=== PATIENT | female | born 2000 | race Hispanic/Latino ===

== ENCOUNTER 2023-01-28 17:57 | Emergency (ER) | payer OTHER, SELFPAY ==
--- OUTSIDE RECORDS SUMMARY | 2023-01-28 18:01 | XMS REPORT | Continuity of Care Document ---
:2000 Author Organization [facility] t Address [address] [place] [id number] Care Team Providers Name Role Phone ALENA LIZAMA Primary Care Physician Unavailable ALENA LIZAMA Attending Clinician Unavailable Nurse, [facility] Attending Clinician Unavailable Alena Lizama MD Attending Clinician Pob, [facility] Lab Main Attending Clinician Unavailable Giovanni Vasquez MD Attending Clinician Doctor Unassigned, [employer] Attending Clinician Unavailable MAKI MAHER Attending Clinician Unavailable Maki Maher PA-C Attending Clinician Mayo Melgoza DO Attending Clinician Ultrasound, [facility] Attending Clinician Unavailable Darrell Hatch MD Attending Clinician 2, [facility] Attending Clinician Unavailable LAUREN MELGOZA Attending Clinician Unavailable LAUREN MELGOZA Attending Clinician Unavailable 2, [facility] Usg Room Attending Clinician Unavailable Lauren Melgoza MD Attending Clinician 5, [facility] Room Attending Clinician Unavailable Yvette Cortés MD Attending Clinician IDALIA QUEVEDO Attending Clinician Unavailable OFELIA HAWK Attending Clinician Unavailable Idalia Dickens Attending Clinician Maddison Mccann MD Attending Clinician [phone] ALENA LIZAMA Admitting Clinician Unavailable Dl HARVEY Alena Patel Admitting Clinician Payers Payer Name Policy Type Policy Number Effective Date Expiration Date Raysa nash [facility] [id number] 2020 00:00:00 MEDICAID [facility] [id number] 2020 00:00:00 Problems Condition Condition Condition Status Onset Resolution Last Treating Co mments Source Name Details Category Date Date Treatment Clinician Date Well woman Well woman Disease Active U nivers exam with exam with 1-10 ity of routine routine 00:00: [place] gynecologi gynecologi 00 Me dical yandy exam yandy exam Branch Depo-Prove Depo-Prove Disease Active U nivers ra ra 1-10 ity of contracept contracept 00:00: Timo prieto melani status melani status 00 Me dical Branch Obesity Obesity Disease Active Univers (BMI (BMI 6-03 ity of 30-39.9) 30-39.9) 00:00: [place] [address] Medical Branch Allergies, Adverse Reactions, Alerts Allergy Allergy Status Severity Reaction(s) Onset Inactive Treating Comm ents Source Name Type Date Date Clinician NO KNOWN Drug Active Univers ALLERGIE Class ity of S [place] [facility] [place] Social History Social Habit Start Date Stop Date Quantity Comments Source History SDOH University o f Alcohol Std [place] [facility] Drinks Branch History SDIN University o f Alcohol Binge [place] [facility] Exposure to Not sure University of SARS-CoV-2 [place] [facility] (event) Branch History [facility] University o f Alcohol Comment [place] [facility] Alcohol intake 2021-12-05 2021-12-05 Lifetime University of 00:00:00 00:00:00 non-drinker [place] [facility] (finding) Branch Tobacco use and 2020-04-26 2020-04-26 Never used Universit y of exposure 00:00:00 00:00:00 [place] [facility] History SDOH 2020-04-26 2020-04-26 1 University o f Alcohol Frequency 00:00:00 00:00:00 [facility] edical [place] Sex Assigned At 2000 2000 Universit y of 00:00:00 00:00:00 [facility] Smoking Status Start Date Stop Date Source Never smoker [facility] [place] [facility] Medications Ordered Filled Start Stop Current Ordering Indication Dosage Frequency Signature Comments Components Source Medication Medication Date Date Medication? Clinician (SIG) Name Name medroxyPROG 2021- No [id number] 150mg Univers ESTERone 03-06 ity of (DEPO-PROVE 16:15: 15:10 [place] RA) syringe 00 :00 Medical 150 mg Branch medroxyPROG 2021- No [id number] 150mg 150 mg, Univers ESTERone 03-06 Intramuscu ity of (DEPO-PROVE 16:15: 15:10 lar, ONCE, [place] RA) syringe 00 :00 1 dose, On Me dical 150 mg [facility] 03/06/22 at 1115, Routine medroxyPROG 2021- No [id number] 150mg Univers ESTERone 12-05 ity of (DEPO-PROVE 21:00: 19:50 [place] RA) syringe 00 :00 Medical 150 mg Branch medroxyPROG 2021- No [id number] 150mg 150 mg, Univers ESTERone 12-05 Intramuscu ity of (DEPO-PROVE 21:00: 19:50 lar, ONCE, [place] RA) syringe 00 :00 1 dose, On Me dical 150 mg [facility] 12/05/21 at 1500, Routine medroxyPROG 2021- No [id number] 150mg Univers ESTERone 12-05 ity of (DEPO-PROVE 21:00: 19:50 [place] RA) syringe 00 :00 Medical 150 mg Branch medroxyPROG 2021- No [id number] 150mg 150 mg, Univers ESTERone 12-05 Intramuscu ity of (DEPO-PROVE 21:00: 19:50 lar, ONCE, [place] RA) syringe 00 :00 1 dose, On Me dical 150 mg [facility] 12/05/21 at 1500, Routine No known No Univers medications 12-05 ity of 14:46: [place] 09 [facility] Immunizations Ordered Filled Immunization Date Status Comments Sour e Immunization Name Name HPV9 2021-12-05 Completed University of 00:00:00 [facility] HPV9 2021-12-05 Completed University 00:00:00 [facility] HPV9 2021-12-05 Completed University of 00:00:00 [facility] 2021-12-05 Completed University of 00:00:00 [place] [facility] TDAP 2020-10-06 Completed University of 00:00:00 [place] [facility] TDAP 2020-10-06 Completed University of 00:00:00 [facility] TDAP 2020-10-06 Completed University of 00:00:00 [place] [facility] TDAP 2020-10-06 Completed University of 00:00:00 [facility] Influenza Virus 2020-09-09 Completed Universit y of Vaccine Quad .5 mL 00:00:00 [place] [facility] IM 6+ MO Branch Influenza Virus 2020-09-09 Completed Universit y of Vaccine Quad .5 mL 00:00:00 [place] [facility] IM 6+ MO Branch Influenza Virus 2020-09-09 Completed Universit y of Vaccine Quad .5 mL 00:00:00 [place] [facility] IM 6+ MO Branch Influenza Virus 2020-09-09 Completed Universit y of Vaccine Quad .5 mL 00:00:00 [place] [facility] IM 6+ MO Branch Vital Signs Vital Name Observation Time Observation Value Comments Source Systolic blood 2022-03-06 15:08:00 109 mm[Hg] Univer sity of pressure [facility] Diastolic blood 2022-03-06 15:08:00 74 mm[Hg] Unive rsity of pressure [facility] Heart rate 2022-03-06 15:08:00 83 /min Universi ty [facility] Body temperature 2022-03-06 15:08:00 36.89 Joan [facility] Body height 2022-03-06 15:08:00 157.5 cm Universi ty [facility] Body weight 2022-03-06 15:08:00 85.458 kg [facility] BMI 2022-03-06 15:08:00 34.46 kg/m2 [facility] ty [facility] Systolic blood 2021-12-05 19:42:00 121 mm[Hg] Univer sity of pressure [facility] Diastolic blood 2021-12-05 19:42:00 81 mm[Hg] Unive rsity of pressure [facility] Heart rate 2021-12-05 19:42:00 92 /min Universi ty [facility] Respiratory rate 2021-12-05 19:42:00 18 /min [facility] height 2021-12-05 19:42:00 157.5 cm [facility] Body weight 2021-12-05 19:42:00 85.73 kg [facility] BMI 2021-12-05 19:42:00 34.57 kg/m2 [facility] Procedures Procedure Date / Time Performed Performing Clinician Souromer e GARDASIL 9 (HPV 9V) 2021-12-05 20:31:20 Alena Lizama [facility] Encounters Start End Encounter Admission Attending Care Care Encounter Source Date/Time Date/Time Type Type Clinicians Facility Department ID 2021-09-24 Outpatient P [facility] ISAAC [id number] Univers [facility] 2022-12-06 2022-12-06 Outpatient R ALENA LIZAMA [facility] [id number] Univers 10:30:00 [facility] 2022-06-21 2022-06-21 Outpatient R ALENA LIZAMA [facility] [id number] Univers 15:00:00 [facility] 2022-05-30 2022-05-30 Outpatient R DL ALENA [facility] [id number] Univers 10:30:00 [facility] 2022-03-06 2022-03-06 Outpatient R ALENA LIZAMA [facility] [id number] Univers 10:00:00 [facility]:08:[facility] 2022-03-06 2022-03-06 Nurse Nurse, [facility] 1.2.840.114 [id number] Univers 10:00:00 10:08:09 Visit Al[place] Liz[place] [id number] [facility] 4.2.7.2.686 Berenice ALBA [phone] Or dical [address] BUILDING 2022-01-26 2022-01-26 Outpatient R [facility] [id number] Univers 10:00:00 [facility] 2021-12-06 2021-12-06 Logistics Tech Braeden Perez Lab Main [facility] [id number] [id number] Univers 14:00:00 14:15:00 Visit Giovanni Vasquez SELENA [id number] ity of Alena Lizama 4.2.7.2.686 [place] PROFESSIO [phone] Or dical NAL 353 [facility] 2021-12-06 2021-12-06 Outpatient R ALENA LIZAMA [facility] [id number] Univers 14:00:00 14:00:00 ity of [facility] 2021-12-05 2021-12-05 Outpatient R ALENA LIZAMA [facility] [id number] Univers 13:30:00 14:42:26 ity of [facility] 2021-12-05 2021-12-05 Office Dl [facility] [id number] Univers 13:30:00 14:42:26 Visit Jorge SELENA [id number] i ty [facility] [id number] [phone] Or dical NAL 134 [facility] 2021-12-05 2021-12-05 Outpatient R ALENA LIZAMA [facility] [id number] Univers 13:30:00 14:42:26 ity of [facility] 2021-09-09 2021-09-09 Nurse Nurse, [facility] [id number] Univers 15:26:14 15:41:14 Visit Alena Lizamaton 350.1.13.10 ity of [place] 4[place]2.[place] Profess[place] [phone] Or dical nal 134 [facility] 2021-09-09 2021-09-09 Outpatient R [facility] [id number] Univers 15:30:00 15:30:00 ity of [facility] 2021-09-09 2021-09-09 Orders Doctor HERNANDEZ 1.2.840.114 [id number] Univers 00:00:00 00:00:00 Only Unassigned, WAQAS 350.1.13.10 ity of [employer] [facility] 4.2.7.2.686 Emir as [phone] [address] 2021-07-21 2021-07-21 Outpatient R GUNNAR [facility] [id number] Univers 10:30:00 10:30:00 MAKI marcelo [facility] 2021-06-09 2021-06-09 Office Gunnar [facility] [id number] Univers 14:33:04 15:53:03 Visit Maki Marcton 350.1.13.10 i ty of [place] [phone] Or dical nal 134 [facility] 2021-06-09 2021-06-09 Outpatient R GUNNAR [facility] [id number] Univers 14:45:00 14:45:00 MAKI marcelo [facility] 2021-06-09 2021-06-09 Orders Doctor DAVID 1.2.840.114 [id number] Univers 00:00:00 00:00:00 Only Unassigned, ACWORTH 350.1.13.10 [facility] 4.2.7.2.686 Emir as [phone] [address] 2021-05-09 2021-05-09 Outpatient R ALENA LIZAMA [facility] [id number] Univers 15:15:00 15:15:00 ity of [facility] 2021-02-15 2021-02-15 [facility] 1.2.840.114 [id number] Univers 00:00:00 00:00:00 Outreach [facility] 350.1.13.10 i ty of [facility] 4.2.7.2.[place] [phone] Or dical [address] [place] [address] 2021-02-14 2021-02-14 Outpatient R ALENA LIZAMA [facility] [id number] Univers 15:00:00 15:00:00 ity of [facility] 2021-02-03 2021-02-03 Office Alena Lizama [facility] [id number] Univers 15:34:01 16:38:35 Visit Jorge Mohan 350.1.13.10 i ty of [place] 4[place]2.7.2.[place] [phone] Or dical [address] 2021-02-03 2021-02-03 Outpatient R ALENA LIZAMA [facility] [id number] Univers 15:30:00 15:30:00 ity [facility] 2021-02-03 2021-02-03 Orders Doctor DAVID 1.2.840.114 [id number] Univers 00:00:00 00:00:00 Only Unassigned, WAQAS 350.1.13.10 [facility]y [facility] 4.2.7.2.686 Emir as [phone] [address] 2021-01-04 2021-01-04 [facility] [id number] Univers 10:15:00 10:15:00 MAKI ity [facility] 2021-01-03 2021-01-03 Orders Doctor DAVID 1.2.840.114 [id number] Univers 00:00:00 00:00:00 Only Unassigned, WAQAS 350.1.13.10 ity [facility] 4.2.7.2.686 Emir as [phone] [address] 2020-12-23 2020-12-23 Nurse Nurse, [facility] 1.2.840.114 [id number] Univers 08:53:37 09:13:01 Visit DlEulamichelle Mohan 350.1.13.10 ity [facility] 4.2.7.2.[place] [phone] Or dical [address] 2020-12-23 2020-12-23 Outpatient R [facility] [id number] Univers 09:00:00 09:00:00 ity of [facility] 2020-12-23 2020-12-23 Telephone Alena Lizama [facility] 1.2.840.114 [id number] Univers 00:00:00 00:00:00 Jorge Mohan 350.1.13.10 i ty of [place] [phone] Or dical [address] 2020-12-15 2020-12-18 Hospital Dl Alena [facility] 1.2.840.114 [id number] Univers 11:51:00 13:45:00 Encounter Cam Bethel 350.1.13.10 ity of [place] 4.2.[place].2.686 [place] [phone] [address] 2020-12-07 2020-12-07 Routine Alena Lizama [facility] 1.2.644.912 [id number] Univers 16:15:55 16:47:56 Cam Bethel 350.1.13.10 ity of Visit [place] 4.2.7.2.[place] [phone] Or dical nal [address] [place] [address] 2020-12-07 2020-12-07 Outpatient R DL ALENA [facility] [id number] Univers 16:15:00 16:15:00 ity of [facility] 2020-11-29 2020-11-29 [facility] [id number] Univers 13:24:32 17:09:01 Cam Bethel 350.1.13.10 ity of [place] 4.2.7.2.[place] [phone] Or dicnj nal [address] [place] [address] 2020-11-29 2020-11-29 Logistics Tech Ultrasound, [facility] 1.2 .840.114 [id number] Univers 09:24:33 09:54:33 Visit Darrell Hatch REGULATORY AUDITOR 350.1.13.10 ity of REGIONAL 4.2.7.2.686 Emir as MATERNAL [phone] Med ical & CHILD [address] [place] [address] 2020-11-29 2020-11-29 Outpatient P [facility] [id number] Univers 09:30:00 09:30:00 ity of [facility] 2020-11-15 2020-11-15 Routine Eula Lizamaen [facility] 1.2.013.132 [id number] Univers 16:07:43 17:05:58 Cam Bethel 350.1.13.10 ity of [place] 4.2.7.2.[place] [phone] Or dical nal [address] [place] [address] 2020-11-15 2020-11-15 Logistics Tech 2, Adc Lab [facility] 1.2.840.114 [id number] Univers 14:51:42 15:06:42 Visit Alena Lizama Jorge Mohan 350.1.13.10 ity of [place] 4.2.7.2.[place] [phone] Or dicbo[facility] 353 [facility] 2020-11-15 2020-11-15 Outpatient R [facility] [id number] Univers 15:00:00 15:00:00 ity of [facility] 2020-11-15 2020-11-15 Orders Doctor DAVID 1.2.840.114 [id number] Univers 00:00:00 00:00:00 Only Unassigned, WAQAS 350.1.13.10 ity of [employer] [facility] 4.2.7.2.686 Emir as [phone] [address] 2020-11-12 2020-11-12 Outpatient R LAUREN MELGOZA [facility] [id number] Univers 13:30:00 13:30:00 LAUREN MELGOZA ity of [facility] 2020-11-01 2020-11-01 Routine Dl [facility] [id number] Univers 15:29:29 16:21:35 Jorge Mohan 350.1.13.10 ity of [place] 4.[place].2.[place] [phone] [facility] 134 [facility] 2020-11-01 2020-11-01 Outpatient R DL [facility] [id number] Univers 15:30:00 15:30:00 ity of [facility] 2020-10-28 2020-10-28 Routine Dl [facility] 1.2.440.704 [id number] Univers 11:10:22 11:44:52 Jorge Mohan 350.1.13.10 ity of [place] 4.2.7.2.[place] [phone] Or [facility] 134 [facility] 2020-10-28 2020-10-28 Outpatient R DL [facility] [id number] Univers 11:15:00 11:15:00 ity of [facility] 2020-10-28 2020-10-28 Telephone Dl [facility] 1..840.114 [id number] Univers 00:00:00 00:00:00 Jorge Mohan 350.1.13.10 i ty of [place] 4.2.7.2.686 [place] [phone] [address] 2020-10-26 2020-10-26 Logistics Tech 2, [facility] Usg Room UNIVERSIT 1 .2.840.114 [id number] Univers 13:04:16 13:34:16 Visit Lauren Melgoza [facility] 350.1.13.10 ity of CLINICS 4.2.7.2.[place] [phone] [address] 2020-10-26 2020-10-26 Outpatient P [facility] [id number] Univers 13:00:00 13:00:00 ity [facility] 2020-10-25 2020-10-25 Outpatient R ALENA LIZAMA [facility] [id number] Univers 15:45:00 15:45:00 ity [facility] 2020-10-06 2020-10-06 [facility] 1..554.839 [id number] Univers 15:39:12 16:08:34 Mkai Mohan 350.1.13.10 ity of Visit [place] 4.2.7.2.[place] [phone] [address] 2020-10-06 2020-10-06 Outpatient R GUNNAR [facility] [id number] Univers 15:30:00 15:30:00 MAKI ity [facility] 2020-09-10 2020-09-10 Logistics Tech 5, [facility] Us Room UNIVERSIT 1 .2.840.114 [id number] Univers 10:29:35 11:29:35 Visit Yvette Cortés [facility] 350.1.13.10 ity of CLINICS 4.2.7.2.[place] [phone] [address] 2020-09-10 2020-09-10 Outpatient P [facility] [id number] Univers 10:30:00 10:30:00 ity [facility] 2020-09-09 2020-09-09 Routine Alena Lizama [facility] [id number] Univers 16:09:46 16:49:54 Cam Bethel 350.1.13.10 ity of [place] 4.2.7.2.[place] [phone] Or dical nal [address] [facility] 2020-09-09 2020-09-09 Outpatient R ALENA LIZAMA [facility] [id number] Univers 16:15:00 16:15:00 ity of [facility] 2020-08-13 2020-08-13 [facility] [id number] Univers 16:30:00 16:30:00 [facility] 2020-08-12 2020-08-12 [facility] [id number] Univers 15:39:18 16:03:16 Makicorey Mohan 350.1.13.10 ity of [place] 4.2.7.2.[place] [phone] Or dical [address] 2020-08-12 2020-08-12 Out[facility] [id number] Univers 15:30:00 15:30:00 [facility] 2020-07-30 2020-07-30 Logistics Tech 5, [facility] Room UNIVERSIT 1 .2.840.114 [id number] Univers 12:56:18 14:47:10 Visit Lauren Melgoza [facility] 350.1.13.10 ity of CL[place] 4.2.7.2.[place] [phone] [address] 2020-07-30 2020-07-30 Outpatient P [facility] [id number] Univers 13:00:00 13:00:00 ity of [facility] 2020-07-16 2020-07-16 Routine Alena Lizama [facility] [id number] [id number] Univers 16:08:01 17:18:50 Cam Bethel 350.1.13.10 ity of Visit [place] 4.2.7.2.[place] [phone] Or dical nal [address] [place] [address] 2020-07-16 2020-07-16 Outpatient R DL ALENA [facility] [id number] Univers 16:15:00 16:15:00 ity of [facility] 2020-07-16 2020-07-16 Logistics Tech 2, Adc Lab [facility] 1.2.840.114 [id number] Univers 15:20:09 15:35:09 Visit Alena Lizama Jorge Mohan 350.1.13.10 ity of [place] 4.2.7.2.686 [place] [phone] Or dical nal [address] [facility] 2020-06-11 2020-07-16 Routine Dl [facility] [id number] Univers 09:23:51 15:16:34 Jorge Mohan 350.1.13.10 ity of Visit [place] 4.2.7.2.[place] [phone] Or dical community health [address] [facility] 2020-07-12 2020-07-12 Outpatient R GUNNAR [facility] [id number] Univers 11:30:00 11:30:00 MAKI ity of [facility] 2020-06-21 2020-06-21 Telephone Dl [facility] 1.2.840.114 [id number] Univers 00:00:00 00:00:00 Jorge Mohan 350.1.13.10 i ty of [place] 4.2.7.2.[place] [phone] Or dicboise [facility] [address] [facility] 2020-06-11 2020-06-11 Outpatient R ALENA LIZAMA [facility] [id number] Univers 09:30:00 09:30:00 ity of [facility] 2020-06-11 2020-06-11 Orders Doctor DAVID 1.2.840.114 [id number] Univers 00:00:00 00:00:00 Only Unassigned, WAQAS 350.1.13.10 ity of [employer] [facility] 4.2.7.2.686 Emir as [phone] [address] 2020-06-10 2020-06-10 Outpatient R ALENA LIZAMA [facility] [id number] Univers 10:00:00 10:00:00 ity of [facility] 2020-06-09 2020-06-09 Telephone Alena Lizama [facility] 1.2.840.114 [id number] Univers 00:00:00 00:00:00 Cam Bethel 350.1.13.10 i ty of [place] 4.2.7.2.[place] [phone] Or dical [address] 2020-05-27 2020-05-27 Outpatient R [facility] [id number] Univers 10:00:00 10:00:00 ity of [facility] 2020-05-27 2020-05-27 Outpatient [facility] [id number] Univers 08:15:00 08:15:00 ROSMILANANDJulien ity o f [facility] 2020-05-27 2020-05-27 Orders Doctor DAVID 1.2.840.114 [id number] Univers 00:00:00 00:00:00 Only Unassigned, WAQAS 350.1.13.10 ity of [employer] [facility] 4.2.7.2.686 Emir as [phone] [address] 2020-05-19 2020-05-19 [facility] [id number] Univers 11:40:00 11:40:00 OFELIA ity of [facility] 2020-05-12 2020-05-12 Routine Dl [facility] 1.2.540.875 [id number] Univers 09:56:49 10:50:16 Cam Bethel 350.1.13.10 ity of Visit [place] 4.2.[place].2.[place] [phone] [address] 2020-05-12 2020-05-12 Outpatient R DL ALENA [facility] [id number] Univers 10:00:00 10:00:00 ity of [facility] 2020-05-04 2020-05-04 Abstract [facility] 1.2.840.114 [id number] Univers 00:00:00 00:00:00 Idalia R REGULATORY AUDITOR 350.1.13.10 ity of [facility] 4.2.7.2.686 Emir as MATERNAL [phone] Med ical & CHILD [address] [place] [address] 2020-05-03 2020-05-03 Logistics Tech Ultrasound, Brijesh-Mfroselia [facility] 1.2 .840.114 [id number] Univers 11:23:33 11:53:33 Visit Maddison Mccann REGULATORY AUDITOR 350.1. 13.10 ity of [facility] 4.2.7.2.686 Emir as MATERNAL [phone] Med ical & CHILD [address] [place] [address] 2020-05-03 2020-05-03 Outpatient P [facility] [id number] Univers 11:30:00 11:30:00 ity [facility] 2020-04-28 2020-04-28 Outpatient R ALENA LIZAMA [facility] [id number] Univers 10:00:00 10:00:00 ity [facility] 2020-04-28 2020-04-28 Telemedici Alena Lizama [facility] 1.2.840.114 [id number] Univers 07:56:15 08:26:15 ne Visit Jorge Bethel 350.1.13.10 ity [facility] 4.2.7.2.[place] [phone] Or dic[address] 2020-04-26 2020-04-26 Outpatient R EMY [facility] [id number] Univers 09:00:00 09:00:00 IDALIA zamora [facility] [facility] This patient has no known results.
[2023-01-28] MEDS ORDERED: ONDANSETRON 4 MG (ODT) TAB ONE (19:03)
[2023-01-28] MEDS ORDERED: NA CHLORIDE 0.9% 1,000 ML ONE ×2 (19:18→19:41)
[2023-01-28 19:37] LABS: Absolute Lymphocytes (CBC) 1.4 K/uL (0.7-4.9); Hematocrit 40.6 % (36.0-45.0); Lymphocytes % 10.8 % (15.3-44.8); MCV 88.7 fL (80-100); MPV 8.7 fL (7.6-11.3); RBC Red Blood Cell Count 4.58 M/uL (3.86-4.86)
[2023-01-28 19:44] LABS: Magnesium 1.8 mg/dL (1.6-2.4); Potassium 3.3 mmol/L (3.5-5.1)
[2023-01-28 20:09] LABS: Urine Blood 3+ (Negative); Urine Glucose Negative (Negative); Urine Protein 2+ (Negative); Urine pH 7.5 (5.0-7.0)
--- NOTE | 2023-01-28 20:23 | RAD REPORT ---
EXAM DESCRIPTION: Alexander Single View01/28/2023 7:57 pm CLINICAL HISTORY: Syncope and vomiting COMPARISON: none FINDINGS: The lungs appear clear of acute infiltrate. The heart is normal size IMPRESSION: No acute abnormalities displayed
--- NOTE | 2023-01-28 21:24 | ER ---
Nurse's Notes [facility] Name: Molly Beasley Age: 22 yrs Sex: Female : 2000 Arrival Date: 01/28/2023 Time: 17:58 Bed 11 Private MD: Diagnosis: Syncope Near;Hypokalemia;Nausea with vomiting, unspecified;Dehydration Presentation: 01/28 18:53 Chief complaint: Patient states: N/V and lightheaded that began today. Pt stated ALFONZO vg1 hand numbness and lip tingling that occurred after vomiting. Coronavirus screen: Vaccine status: Patient reports receiving the 2nd dose of the covid vaccine. Client denies travel out of the [place] in the last 14 days. Ebola Screen: Patient negative for fever greater than or equal to 101.5 degrees Fahrenheit, and additional compatible Ebola Virus Disease symptoms Patient denies exposure to infectious person. Initial Sepsis Screen: Does the patient meet any 2 criteria? No. Patient's initial sepsis screen is negative. Does the patient have a suspected source of infection? No. Patient's initial sepsis screen is negative. Risk Assessment: Do you want to hurt yourself or someone else? Patient reports no desire to harm self or others. Onset of symptoms was January 28, 2023. 18:53 Method Of Arrival: Wheelchair vg1 18:53 Acuity: BINU 3 vg1 Triage Assessment: 18:55 General: Appears uncomfortable, Behavior is calm, cooperative. Pain: Denies pain. vg1 Neuro: Level of Consciousness is awake, alert, obeys commands, Oriented to person, place, time, situation. Respiratory: Airway is patent Respiratory effort is even, unlabored. GI: Abdomen is round non-distended, Reports nausea, vomiting. 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 - Social history:: Smoking status: Patient denies any tobacco usage or history of. Screenin:47 [facility] ED Fall Risk Assessment (Adult) History of falling in the last 3 months, vc1 including since admission No falls in past 3 months (0 pts) Confusion or Disorientation No (0 pts) Intoxicated or Sedated No (0 pts) Impaired Gait No (0 pts) Mobility Assist Device Used No (0 pt) Altered Elimination No (0 pt) Score/Fall Risk Level 0 - 2 = Low Risk Oriented to surroundings, Maintained a safe environment, Educated pt \T\ family on fall prevention, incl call for assistance when getting out of bed. Abuse screen: Denies threats or abuse. Nutritional screening: No deficits noted. Tuberculosis screening: No symptoms or risk factors identified. Assessment: 18:54 Reassessment: received VO from Shari CRAIN to administer Zofran 4 mg PO x1. vg1 Vital Signs: 18:53 BP 110 / 74; Pulse 88; Resp 16; Temp 98.4(O); Pulse Ox 100% on R/A; Weight 81.65 kg; vg1 Height 5 ft. 2 in. (157.48 cm); Pain 0/10; 19:41 BP 133 / 72; Pulse 72; Resp 18; Temp 98.4(O); Pulse Ox 100% on R/A; Weight 81.65 kg; rv1 Height 5 ft. 2 in. (157.48 cm); Pain 0/10; 20:58 BP 132 / 77 Supine; Pulse 72 LA; kr3 20:58 BP 119 / 78 Sitting; Pulse 79 LA; kr3 20:58 BP 108 / 74 Standing; Pulse 96 LA; kr3 19:41 Body Mass Index 32.92 (81.65 kg, 157.48 cm) rv1 ED Course: 17:58 Patient arrived in ED. am2 17:59 Erik Mccarthy PA is PHCP. cp 17:59 Tray Goins MD is Attending Physician. cp 18:55 Triage completed. vg1 18:55 Arm band placed on. vg1 19:16 Inserted saline lock: 20 gauge in right antecubital area, using aseptic technique. rv1 Blood collected. 19:34 Blossom Chadwick, FELY is Primary Nurse. kr3 19:38 Basic Metabolic Panel Sent. rv1 19:38 CBC with Diff Sent. rv1 19:38 Magnesium Sent. rv1 20:00 Patient has correct armband on for positive identification. Bed in low position. Client vc1 placed on continuous cardiac and pulse oximetry monitoring. NIBP monitoring applied. 20:55 Urine --Ancillary (enter results) Sent. as6 21:47 No provider procedures requiring assistance completed. IV discontinued, intact, vc1 bleeding controlled, No redness/swelling at site. Pressure dressing applied. Administered Medications: 18:59 Drug: Zofran (Ondansetron) 4 mg Route: PO; vg1 19:50 Drug: NS 0.9% 1000 ml Route: IV; Rate: 1 bolus; Site: right antecubital; kr3 21:46 Drug: Potassium Effervescent Tablet 50 mEq Route: PO; vc1 21:46 Follow up: Response: No adverse reaction; Medication administered at discharge. vc1 Medication: 21:48 VIS not applicable for this client. vc1 Outcome: 21:23 Discharge ordered by MD. cp 21:48 Discharged to home ambulatory, with family. vc1 21:48 Condition: improved 21:48 Discharge instructions given to patient, Instructed on discharge instructions, follow up and referral plans. medication usage, Demonstrated understanding of instructions, follow-up care, medications. 21:48 Patient left the ED. vc1 Signatures: Erik Mccarthy, PARAS PA Nay Garcia amKaitlin Quick, RN RN vg1 Reese Carpenter, RN RN as6 Lea Williamson RN RN vc1 Blossom Chadwick RN RN kr3 Candy Odonnell rv1 Corrections: (The following items were deleted from the chart) 19:39 19:39 Inserted saline lock: 20 gauge in right antecubital area, using aseptic rv1 technique. Blood collected. rv1
--- NOTE | 2023-01-28 21:24 | EDPHYS ---
Physician Documentation [facility] Name: Molly Beasley Age: 22 yrs Sex: Female : 2000 Arrival Date: 01/28/2023 Time: 17:58 Bed 11 Private MD: ED Physician Tray Goins HPI: 01/28 19:05 This 22 yrs old Female presents to ER via Wheelchair with complaints of cp Numbness Of Arm, lightheaded, Nausea/Vomiting, fast hr. 19:05 The patient has experienced near-syncope, almost passed out, lightheaded. Onset: The cp symptoms/episode began/occurred today, while at work. 19:05 Duration: This was a single episode, that is still ongoing. 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 Just prior to the episode the patient experienced no apparent symptoms. Associated injury: The patient did not suffer any apparent associated injury. Associated signs and symptoms: Pertinent positives: nausea, palpitations, vomiting, numbness of arms, Pertinent negatives: abdominal pain, chest pain. Current symptoms: improved. 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 - Social history:: Smoking status: Patient denies any tobacco usage or history of. ROS: 19:10 Constitutional: Negative for body aches, chills, fever, poor PO intake. cp 19:10 Eyes: Negative for injury, pain, redness, and discharge. cp 19:10 ENT: Negative for drainage from ear(s), ear pain, sore throat, difficulty swallowing, difficulty handling secretions. 19:10 Cardiovascular: Positive for palpitations, Negative for chest pain. 19:10 Respiratory: Negative for cough, shortness of breath, wheezing. 19:10 Abdomen/GI: Positive for nausea and vomiting, Negative for diarrhea, constipation. 19:10 Neuro: Positive for numbness, near syncope, Negative for altered mental status. 19:10 All other systems are negative. Exam: 19:15 Constitutional: The patient appears in no acute distress, alert, awake, cp non-diaphoretic, non-toxic, well developed, well nourished. 19:15 Head/Face: Normocephalic, atraumatic. cp 19:15 Eyes: Periorbital structures: appear normal, Pupils: equal, round, and reactive to light and accomodation, Extraocular movements: intact throughout, Conjunctiva: normal, no exudate, no injection, Sclera: no appreciated abnormality, Lids and lashes: appear normal, bilaterally. 19:15 ENT: External ear(s): are unremarkable, Nose: is normal, Mouth: Lips: moist, Oral mucosa: pink and intact, moist, Posterior pharynx: is normal, airway is patent, no erythema, no exudate. 19:15 Neck: ROM/movement: is normal, is supple, without pain, no range of motions limitations. 19:15 Chest/axilla: Inspection: normal, Palpation: is normal, no crepitus, no tenderness. 19:15 Cardiovascular: Rate: normal, Rhythm: regular, Edema: is not appreciated, JVD: is not appreciated. 19:15 Respiratory: the patient does not display signs of respiratory distress, Respirations: normal, no use of accessory muscles, no retractions, labored breathing, is not present, Breath sounds: are clear throughout, no decreased breath sounds, no stridor, no wheezing. 19:15 Abdomen/GI: Inspection: abdomen appears normal, Palpation: abdomen is soft and non-tender, in all quadrants. 19:15 Neuro: Orientation: to person, place \T\ time. Mentation: is normal, Cerebellar function: Romberg testing is negative, Motor: moves all fours, strength is normal, Sensation: no obvious gross deficits. 19:51 ECG was reviewed by the Attending Physician. cp Vital Signs: 18:53 BP 110 / 74; Pulse 88; Resp 16; Temp 98.4(O); Pulse Ox 100% on R/A; Weight 81.65 kg; vg1 Height 5 ft. 2 in. (157.48 cm); Pain 0/10; 19:41 BP 133 / 72; Pulse 72; Resp 18; Temp 98.4(O); Pulse Ox 100% on R/A; Weight 81.65 kg; rv1 Height 5 ft. 2 in. (157.48 cm); Pain 0/10; 20:58 BP 132 / 77 Supine; Pulse 72 LA; kr3 20:58 BP 119 / 78 Sitting; Pulse 79 LA; kr3 20:58 BP 108 / 74 Standing; Pulse 96 LA; kr3 19:41 Body Mass Index 32.92 (81.65 kg, 157.48 cm) rv1 MDM: 19:01 Patient medically screened. cp 20:00 Differential Diagnosis: cardiac arrhythmia, cerebrovascular accident, drug effect, GI cp bleed, , pseudo seizure, transient ischemic attack. 21:22 Data reviewed: vital signs, nurses notes. cp 21:22 Consideration of Admission/Observation Escalation of care including cp admission/observation considered. I considered the following discharge prescriptions or medication management in the emergency department Medications were administered in the Emergency Department. See MAR. Test considered but Not performed: CT: head. Counseling: I had a detailed discussion with the patient and/or guardian regarding: the historical points, exam findings, and any diagnostic results supporting the discharge/admit diagnosis, lab results, radiology results, to return to the emergency department if symptoms worsen or persist or if there are any questions or concerns that arise at home. Response to treatment: the patient's symptoms have markedly improved after treatment, and as a result, I will discharge patient. 03 19:06 Order name: Basic Metabolic Panel cp 03 19:06 Order name: CBC with Diff cp 01/28 19:06 Order name: Magnesium cp 01/28 19:06 Order name: XRAY Chest (1 view) cp 01/28 19:06 Order name: EKG; Complete Time: 19:07 cp 01/28 19:06 Order name: Cardiac monitoring; Complete Time: 19:38 cp 03/05 19:06 Order name: EKG - Nurse/Tech; Complete Time: 19:48 cp 03 19:06 Order name: IV Saline Lock; Complete Time: 19:38 cp 03/ 19:06 Order name: Labs collected and sent; Complete Time: 19:39 cp 03/05 19:06 Order name: O2 Per Protocol; Complete Time: 19:39 cp 03/ 19:06 Order name: O2 Sat Monitoring; Complete Time: 19:39 cp 03 19:06 Order name: Urine Test (obtain specimen); Complete Time: 20:09 cp 03/ 19:06 Order name: Urine Dipstick-Ancillary (obtain specimen); Complete Time: 20:09 cp 01/28 19:06 Order name: Orthostatics; Complete Time: 20:59 cp 01/28 19:40 Order name: CBC with Automated Diff; Complete Time: 21:07 EDMS 01/28 21:07 Interpretation: Normal except: WBC 13.20; MONICO% 84.4; LYM% 10.8; NEUT A 11.1. cp 01/28 19:44 Order name: Basic Metabolic Panel; Complete Time: 21:07 EDMS 01/28 21:07 Interpretation: Normal except: K 3.3; GLUC 121. cp 01/28 19:44 Order name: Magnesium; Complete Time: 21:07 EDMS 01/28 20:09 Order name: Urine --Ancillary (enter results) ds4 01/28 20:10 Order name: Urine Dipstick-Ancillary; Complete Time: 21:07 EDMS 01/28 21:08 Interpretation: Normal except: UKET 4+; UBLD 3+; UPH 7.5; UPROT 2+. cp 01/28 20:23 Order name: RAD; Complete Time: 21:07 EDMS 01/28 21:12 Order name: Urine --Ancillary; Complete Time: 21:15 EDMS EC:51 Rate is 77 beats/min. Rhythm is regular. PA interval is normal. QRS interval is normal. cp QT interval is prolonged at 426 msec. Interpreted by me. Reviewed by me. Administered Medications: 18:59 Drug: Zofran (Ondansetron) 4 mg Route: PO; vg1 19:50 Drug: NS 0.9% 1000 ml Route: IV; Rate: 1 bolus; Site: right antecubital; kr3 21:46 Drug: Potassium Effervescent Tablet 50 mEq Route: PO; vc1 21:46 Follow up: Response: No adverse reaction; Medication administered at discharge. vc1 Disposition Summary: 01/28/23 21:23 Discharge Ordered Location: Home cp Problem: new cp Symptoms: have improved cp Condition: Stable cp Diagnosis - Syncope Near cp - Hypokalemia cp - Nausea with vomiting, unspecified cp - Dehydration cp Followup: cp - With: Private Physician - When: 2 - 3 days - Reason: Recheck today's complaints Discharge Instructions: - Discharge Summary Sheet cp - Dehydration, Adult cp - Potassium Content of Foods cp - Nausea and Vomiting, Adult cp - Near-Syncope cp - Hypokalemia cp Forms: - Medication Reconciliation Form cp - Thank You Letter cp - Antibiotic Education cp - Prescription Opioid Use cp Prescriptions: - Potassium Chloride 10 mEq Oral capsule, extended release - take 1 tablet by ORAL route once daily; 3 tablet; Refills: 0, Product Selection cp Permitted Signatures: Dispatcher [employer] EDMS Erik Mccarthy PA PA cp Garcia, Victoria RN RN vg1 Lea Williamson RN RN vc1 Blossom Chadwick RN RN kr3
[2023-01-28] MEDS ORDERED: POTASSIUM 25 MEQ EFFERV TAB ONE (21:35)
--- NOTE | 2023-01-29 16:37 | EKG ---
Test Date: 2023-01-28 Test Time: 19:45:03 Business Continuity Consultant: TARIQ MEASUREMENT RESULTS: Intervals: Rate: 77 NC: 150 QRSD: 94 QT: 426 QTc: 482 [place]: P: 52 NC: 150 QRS: 78 T: 67 INTERPRETIVE STATEMENTS: Normal sinus rhythm Prolonged QT Abnormal ECG No previous ECG available for comparison Electronically Signed On 01-29-23 16:35:56 [employer]EN SYSTEMS DESIGNER by Peter Merritt
== END 2023-01-28 21:48 | disposition home or self-care (01) ==
LOC: ER 17:57
DX: R55 Syncope and collapse (principal); E86.0 Dehydration; E87.6 Hypokalemia; R11.2 Nausea with vomiting, unspecified
CPT/HCPCS: 36415; 71045; 80048; 81003; 81025; 83735; 85025; 93005; 99284; J7030; Q0162